=== PATIENT | female | born 1975 | race Caucasian/White ===

== ENCOUNTER 2025-04-03 12:28 | Emergency (ER) | payer OTHER, SELFPAY ==
[2025-04-03 12:35] VITALS: BP 149/113; PULSE 94; TEMP 36.7; O2SAT 96; BMI 28.7
--- NOTE | 2025-04-03 12:39 | XR_ITS ---
The [address] [address] Patient Name: FRITZ BLACKBURN MRN: [id number] date: 1975 Sex: F Assigned Patient Location: ER Current Patient Location: ER Accession/Order Number: [id number] Exam Date: 04/03/2025 12:45 Report Date: 04/03/2025 12:55 At the request of: PEÑA OCOPER MD Procedure: XR shoulder LT min 2V LEFT SHOULDER - 3 views CLINICAL HISTORY: Patient slipped on ice onto outstretched arm and heard a pop. Left shoulder pain and decreased range of motion. COMPARISON: None AP, Y and Grashey views were obtained. A nondisplaced fracture is suspected at the greater tuberosity. There is no additional fracture or dislocation. There are no significant soft tissue abnormalities. XR/XR shoulder LT min 2V IMPRESSION: SUSPECTED NONDISPLACED FRACTURE INVOLVING THE GREATER TUBEROSITY Impression dictated by: Gloria Card M.D. 04/03/2025 12:55 PM Dictation Location: [facility] Electronically authenticated by: [id number] Y Date: 04/03/2025 12:55
--- NOTE | 2025-04-03 12:42 | ED_ITS ---
HPI HPI - General Adult General Chief complaint: Extremity Injury, Upper Stated complaint: UPPER EXTREMITY INJURY FALL TODAY Time Seen by Provider: 04/03/25 12:32 Source: patient Mode of arrival: walk-in Limitations: no limitations History of Present Illness HPI narrative: 49-year-old female presented to the emergency department for left shoulder pain. She is right-handed. About an hour ago she slipped on ice and started to fall and her arm went above her head. She did not hit her head and has no pain in the left elbow or left wrist. She points to the anterior shoulder to indicate where the pain is. Related Data Previous Rx's ?Medication ?Instructions ?Recorded acetaminophen 300 mg-codeine 30 mg 1 tab PO Q6H PRN pa in 5 days #20 04/03/25 tablet tabs ibuprofen 800 mg tablet 800 mg PO Q8H PRN pain #20 t abs 04/03/25 Allergies Allergy/AdvReac Type Severity Reaction Status Date / Time No Known Drug Allergies Allergy Verified 04/03/25 12:35 Opioid HPI Opioid Management Most Recent Opioid Data: Last Pain Scale 10 Today, 12:35 Review of Systems ROS Narrative A ten point review of systems is negative except as noted above. PFSH PFSH Social History Little interest or pleasure in doing things: not at all Feeling down, depressed, or hopeless: not at all Exam Narrative Exam Narrative: Nurses note and vital signs reviewed General:The patient appears uncomfortable and in no distress. Her arm is flexed at the elbow Skin:Warm, dry, no pallor noted.There is no rash noted. Head:Normocephalic, atraumatic Eye: Normal conjunctiva, no drainage Ears, Nose, Mouth, and Throat: oral mucosa is moist. Nares patent. Cardiovascular:Regular Rate and Rhythm Respiratory:Patient is in no distress, no accessory muscle use, lungs are clear to auscultation, no wheezing, rales or rhonchi Back:non-tender GI: Soft and nontender Musculoskeletal: No deformity of the left shoulder. Skin intact. Left wrist and elbow are nontender and radial pulses 2+. She is reluctant to move her shoulder. Neurological:A&O, normal speech Psychiatric:Cooperative Constitutional Vital Signs, click to edit/add: Last Vital Signs Temp 98.1 F 04/03/25 12:35 Pulse 94 H 04/03/25 12:35 Resp 16 04/03/25 12:35 BP 149/113 H 04/03/25 12:35 Pulse Ox 96 04/03/25 12:35 O2 Del Method Room Air 04/03/25 12:35 Course Vital Signs Vital signs: Vital Signs Temperature 98.1 F 04/03/25 12:35 Pulse Rate 94 H 04/03/25 12:35 Respiratory Rate 16 04/03/25 12:35 Blood Pressure 149/113 H 04/03/25 12:35 Pulse Oximetry 96 04/03/25 12:35 Oxygen Delivery Method Room Air 04/03/25 12:35 Temperature 98.1 F 04/03/25 12:35 Pulse Rate 94 H 04/03/25 12:35 Respiratory Rate 16 04/03/25 12:35 Blood Pressure 149/113 H 04/03/25 12:35 Pulse Oximetry 96 04/03/25 12:35 Oxygen Delivery Method Room Air 04/03/25 12:35 Medical Decision Making MDM Narrative Medical decision making narrative: Left humeral greater trochanter fracture is identified. She is placed in a sling. Application checked by me and found to be appropriate, she is neurovascular intact. She is provided pain medication and orthopedic referral. She called today to make a follow-up appointment. She was also instructed to call her PCP to get back on her medications including her blood pressure medicine. Treatment diagnosis and follow-up were discussed with the patient. Differential Diagnosis Differential Diagnosis: Fracture, contusion, rotator cuff injury Imaging Data Left shoulder x-ray: Radiologist's impression: ITS Impressions Shoulder X-Ray 04/03/25 12:39 IMPRESSION: SUSPECTED NONDISPLACED FRACTURE INVOLVING THE GREATER TUBEROSITY Impression dictated by: Gloria Card M.D. 04/03/2025 12:55 PM Dictation Location[facility] [employer] Electronically authenticated by: [id number] Y Date: 04/03/2025 12:55 Discharge Plan Discharge Chief Complaint: Extremity Injury, Upper Clinical Impression: Closed left humeral fracture Patient Disposition: Home, Self-Care Time of Disposition Decision: 13:05 Condition: Good Mode of Transportation: Private Vehicle Prescriptions / Home Meds: New acetaminophen-codeine 300-30 mg tablet 1 tab PO Q6H PRN (Reason: pain) 5 Days Qty: 20 0RF ibuprofen 800 mg tablet 800 mg PO Q8H PRN (Reason: pain) Qty: 20 0RF Print Language: Polish Instructions: Arm Fracture in Adults (ED), How to Use a Sling (ED) Additional Instructions: Call the orthopedist today to make follow-up appointment. Call your PCP today to make an appointment to get back on your medications. Referrals: Javon Koroma DO [Physician, Orthopedics]
[2025-04-03] MEDS: KETOROLAC TROMETHAMINE 60 MG/2 ML VIAL IM (13:29)
[2025-04-03 13:42] VITALS: BP 165/107; PULSE 65; O2SAT 98
== END 2025-04-03 13:45 | disposition home or self-care (01) ==
PROVIDERS: Emergency Provider Emergency Medicine
DX: S42.255A Nondisplaced fracture of greater tuberosity of left humerus, initial encounter for closed fracture (principal); W00.0XXA Fall on same level due to ice and snow, initial encounter
CPT/HCPCS: 73030; 96372; 99284; J1885